=== PATIENT | female | born 1945 | race Caucasian/White ===

== ENCOUNTER 2022-07-09 21:06 | Outpatient (CLI) | payer MEDICARE | END 2022-07-09 23:59 | disposition critical access hospital (66) | LOC: EMS 21:06 | DX: S49.92XA Unspecified injury of left shoulder and upper arm, initial encounter (principal); W01.0XXA Fall on same level from slipping, tripping and stumbling without subsequent striking against object, initial encounter; Y93.01 Activity, walking, marching and hiking; Y92.000 Kitchen of unspecified non-institutional (private) residence as the place of occurrence of the external cause | CPT/HCPCS: A0425; A0427 ==

== ENCOUNTER 2022-07-09 21:40 | Emergency (ER) | payer MEDICAID, MEDICARE ==
[2022-07-09] MEDS ORDERED: HYDROmorphone 1 MG/ML CARPUJECT IVP STA ×2 (22:13→23:44)
--- NOTE | 2022-07-09 23:32 | XRAY Report ---
PROCEDURE: Humerus LT INDICATIONS: fall, arm pain TECHNIQUE: 4 views of the humerus were acquired. COMPARISON: None. FINDINGS: Bones: There is anterior dislocation of the left glenohumeral joint. There are a few fracture fragmen ts along the lateral aspect of the humeral head. Soft tissues: No suspicious soft tissue calcifications. IMPRESSION: 1. Anterior dislocation of the left glenohumeral joint. 2. Adjacent fracture fragments may represent humeral head and/or glenoid fractures. Reviewed by: Markell Najera MD on 07/09/2022 11:31 PM PDT Approved by: Markell Najera MD on 07/09/2022 11:31 PM PDT Station ID: [id number]
--- NOTE | 2022-07-10 01:03 | ED Physician Documentation ---
History of Present Illness - Stated complaint Stated Complaint: GLF - Chief complaint Chief Complaint: Ext Problem - History obtained from History obtained from: Patient - Additonal information Additional information: 77yF presents s/p trip and fall onto L shoulder with sudden onset pain and deformity. no other injury. normal sensation and movement of L hand Review of Systems Musculoskeletal: reports: Joint pain PD PAST MEDICAL HISTORY - Present Medications Home Medications: Ambulatory Orders Medication Instructions Recorded Confirmed No Known Home Medications 07/09/22 07/09/22 - Allergies Allergies/Adverse Reactions: Allergies Allergy/AdvReac Type Severity Reaction Status Date / Time No Known Drug Allergies Allergy Verified 07/09/22 22:05 PD ED PE NORMAL - Vitals Vital signs reviewed: Yes - General General: Alert and oriented X 3, No acute distress, Well developed/nourished - HEENT HEENT: Atraumatic, PERRL, EOMI - Neck Neck: No bony TTP - Extremities Extremities: Other (L shoulder sloping deformity. LUE 2+ radial pulse. normal sensation and movement) Results - Vitals Vitals: Vital Signs - 24 hr 07/09/22 07/09/22 07/10/22 22:03 22:05 00:53 Temperature 36.5 C 36.5 C Heart Rate 70 70 68 Respiratory 16 16 15 Rate Blood Pressure 153/88 H 153/88 H 138/80 H O2 Saturation 100 100 100 07/10/22 07/10/22 02:00 02:35 Temperature Heart Rate 67 54 L Respiratory 16 15 Rate Blood Pressure 117/74 121/81 H O2 Saturation 100 100 Oxygen O2 Source Room air Procedures - Reduction Body part reduced: Left, Humerus Fracture or dislocation: Fracture dislocation Anesthesia: Dilaudid Shoulder reduction technique: Scapular manipulation, Traction - counter tract Reduction aftercare: NV intact, Sling, Patient tolerated well PD Medical Decision Making - ED course ED course: 77yF p/w L shoulder fracture and dislocation. Patient had anterior dislocation of L glenohumeral joint with fracture fragments along lateral humeral head per initial XR by radiology. Attempted reduction with KRYSTA Webber assisting. Patient had improvement in ROM and stated her pain resolved. NV intact. Good revenue specialist strength. Repeat XR showed complete fracture of humeral head. d/w Dr. Wharton, orthopedist senior fire protection engineer who states this was likely a displaced fracture in the first place. Usually he does not operate on these at [facility] and recommends consulting orthopedics for next steps. Dr. Gilmer Danielson, orthopedist, accepts patient in transfer ED-ED. d/w Dr. Simpson, ed physician who accepts the patient in transfer. Departure - Departure Disposition: 02 Transfer Acute Care Hosp Clinical Impression: Fracture of humeral head, Anterior dislocation of humerus Condition: Stable
--- NOTE | 2022-07-10 01:16 | XRAY Report ---
PROCEDURE: Shoulder 2 View LT INDICATIONS: dislocation TECHNIQUE: 2 views of the left shoulder were acquired. COMPARISON: Prior x-ray 07/09/2022. FINDINGS: Bones: There is interval reduction of the previously dislocated left glenohumeral joint. A comminuted fracture of the humeral head is noted. There is mild acromioclavicular joint degeneration. No suspic ious bony lesions. Visualized ribs appear intact. Soft tissues: No suspicious soft tissue calcifications. IMPRESSION: 1. Interval reduction of the previously dislocated left glenohumeral joint. 2. Previously visualized fracture fragments adjacent to the humeral head suggests sequelae of a humer al head fracture. Reviewed by: Markell Najera MD on 07/10/2022 1:14 AM PDT Approved by: Markell Najera MD on 07/10/2022 1:14 AM PDT Station ID: [id number]
[2022-07-10] MEDS ORDERED: ONDANSETRON 4 MG/2 ML VIAL IVP STA (02:15)
[2022-07-10] MEDS ORDERED: HYDROmorphone 1 MG/ML CARPUJECT IVP PRN (03:10)
[2022-07-10] MEDS ORDERED: ONDANSETRON 4 MG/2 ML VIAL IVP PRN (03:11)
[2022-07-10 05:50] VITALS: BP 128/76
== END 2022-07-10 06:06 | disposition short-term general hospital (02) ==
LOC: ED 21:40
DX: S42.202A Unspecified fracture of upper end of left humerus, initial encounter for closed fracture (principal); W01.0XXA Fall on same level from slipping, tripping and stumbling without subsequent striking against object, initial encounter; Z20.822 Contact with and (suspected) exposure to COVID-19
CPT/HCPCS: 24577; 73030; 73060; 87635; 96374; 96375; 96376; 99284; J1170